=== PATIENT | male | born 1955 | race Caucasian/White ===

== ENCOUNTER → 2024-03-30 | Day surgery (SDC) | payer MEDICARE ==
[~2024-03-30] MED LIST: EPINEPHRINE 1 MG/ML 30ML VIAL ONE; MULTI-VITAMIN1 EACH PO; NEURONTIN100 MG PO; NEXIUM20 MG PO
[2024-03-30] MEDS: LACTATED RINGER'S 1,000 ML ONE (08:13)
[2024-03-30 12:15] VITALS: BP 130/67; PULSE 53; RESP 18; O2SAT 97
== END | disposition home or self-care (01) ==
LOC: OR 07:20
PROVIDERS: ATTEND Specialist
DX: M75.101 Unspecified rotator cuff tear or rupture of right shoulder, not specified as traumatic (principal); G89.29 Other chronic pain; K21.9 Gastro-esophageal reflux disease without esophagitis; Z01.818 Encounter for other preprocedural examination; Z79.899 Other long term (current) drug therapy
CPT/HCPCS: 29827; 71046; 93005; C1713; J0690; J7121